=== PATIENT | female | born 1960 | race Caucasian/White ===

== ENCOUNTER 2023-11-26 11:27 | Emergency (ER) | payer OTHER, SELFPAY ==
--- NOTE | 2023-11-26 11:30 | ED.GENADULT ---
HPI - General Adult General Date Seen: 11/26/23 Chief complaint: Laceration/Wound Stated complaint: Ear/wrist lac Time Seen by Provider: 11/26/23 11:29 History of Present Illness HPI narrative: 62-year-old female presenting to the ER today with [facility] [employer] for evaluation of injuries that occurred during and on the work accident. 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 There was a wet spot on the floor of the bathroom she was cleaning so she slipped and fell. She is not exactly sure what happened when she slipped because it happened so fast but she struck her right ear gets the edge of the counter where the sinks were. She was not knocked out. She does not have a headache. No blurry vision. No dizziness. No nausea. No confusion. No amnesia. She struck her ear and some bleeding from that year. She also scraped the dorsum of the ulnar aspect of her left wrist when she fell. She is not exactly sure how that happened but probably from flailing her arms. She does not have any pain in the wrist. No numbness in her left hand. No difficulty with range of motion. She does not think her left wrist is broken. No other injuries from the fall. She is not sure of her last tetanus shot. Evaluation of [place] immunization database indicates that it was 11 years ago in 2012. She is not diabetic or immunosuppressed. She does have a history of depression and takes a low dose of antidepressant. Related Data Home Medications Medication Instructions Recorded Confirmed cetirizine 10 mg tablet 10 mg PO DAILY 11/26/23 11/26/23 fluticasone propionate 50 2 spray intranasal DAILY 11/26/23 11/26/23 mcg/actuation nasal spray,suspension gabapentin 100 mg capsule 100 mg PO QPM PRN pain 11/26/23 11/26/23 Allergies Allergy/AdvReac Type Severity Reaction Status Date / Time Penicillins Allergy Intermediate Hives Verified 11/26/23 11:32 Sulfa (Sulfonamide Allergy Intermediate Hives Verified 11/26/23 11:32 Antibiotics) PFSH PFSH Social History Smoking Status: Never smoker How often do you have a drink containing alcohol: never AUDIT-C Alcohol total score: 0 Non-prescribed substance use: denies use service: No Exam Narrative: Exam Narrative: Constitutional: Appears well-developed and well-nourished. Alert. Conversant. Non toxic. HENT: Head: Left ear normal. TM normal. Right ear: Patient has 2 lacerations on the anterior portion of her left ear. One of them is just anterior to the helix of the right earing the scapha, measuring about 8 or 9 mm running parallel to the helix. the 2nd laceration on the anterior surface is on the lower border of the helix running perpendicular to the axis of the helix just above where the lobe begins it is approximately 8 or 10 mm in length. There is also a linear 10-12 mm laceration on the posterior aspect of the ear running vertically on the posterior aspect of the ear. These do not appear to be through and through lacerations. There subtle ecchymosis on the anterior anti helix which is probably a very small area of hematoma, possibly a very early small, auricular hematoma.. Nose: Nose normal. Mouth/Throat: Oral mucosa is clear and moist. no trismus. Pharynx normal. Tonsils symmetric. No tonsillar enlargement, erythema, or exudate. Eyes: Conjunctivae normal. EOM normal. Pupils equal, round, and reactive to light. No scleral icterus. Neck: Normal range of motion. Neck supple. No tracheal deviation present. Cardiovascular: Normal rate, regular rhythm. No gallop. No friction rub. No murmur heard. Symmetric radial artery pulses Pulmonary/Chest: Effort normal. No stridor. No respiratory distress. No wheezes. No rales. No rhonchi . No tenderness. Abdominal: Soft. Bowel sounds normal. No distension. No mass. No tenderness. No rebound. No guarding. Musculoskeletal: RUE: Normal range of motion. No tenderness. No deformity LUE: Normal range of motion. No tenderness. No deformity RLE: Normal range of motion. No edema. No tenderness. No deformity LLE: Normal range of motion. No edema. No tenderness. No deformity Lymph: No cervical adenopathy. Neurological: Alert and oriented to person, place, and time. Normal strength. CN II-VII intact. No sensory deficit. GCS eye subscore is 4. GCS verbal subscore is 5. GCS motor subscore is 6. Normal coordination Skin: Skin is warm and dry. No rash noted. No pallor. Normal capillary refill. Psychiatric: Normal mood. Normal affect. Const: Vital Signs, click to edit/add: Vital Signs - 24 hr 11/26/23 11:33 Temperature 97.3 F L Pulse Rate [Pulse Oximeter] 67 Respiratory Rate 18 Blood Pressure [Ri ght Upper Arm] 191/101 H Pulse Oximetry 98 Oxygen Delivery Me thod Room Air Course Vital Signs Vital signs: Initial Vital Signs Temperature 97.3 F L 11/26/23 11:33 Temperature Source Temporal Artery Scan 11/26/23 11:33 Pulse Rate 67 11/26/23 11:33 Respiratory Rate 18 11/26/23 11:33 Blood Pressure 191/101 H 11/26/23 11:33 Blood Pressure Mean 131 H 11/26/23 11:33 Blood Pressure Position Sitting 11/26/23 11:33 Pulse Oximetry 98 11/26/23 11:33 Oxygen Delivery Method Room Air 11/26/23 11:33 Vital Signs Temperature 97.3 F L 11/26/23 11:33 Pulse Rate 67 11/26/23 11:33 Respiratory Rate 18 11/26/23 11:33 Blood Pressure 191/101 H 11/26/23 11:33 Pulse Oximetry 98 11/26/23 11:33 Oxygen Delivery Method Room Air 11/26/23 11:33 Temperature 97.3 F L 11/26/23 11:33 Pulse Rate 67 11/26/23 11:33 Respiratory Rate 18 11/26/23 11:33 Blood Pressure 191/101 H 11/26/23 11:33 Pulse Oximetry 98 11/26/23 11:33 Oxygen Delivery Method Room Air 11/26/23 11:33 Medical Decision Making MDM Narrative Medical decision making narrative: Very pleasant 62-year-old female who works at [employer]. She has a work related injury to her right ear that occurred when she was cleaning a bathroom and slipped on the wet floor. She struck her ear against the counter. She did not have a head injury, loss of consciousness. She has no headache or other symptoms of concussion or TBI. At this point I do not think she needs head CT. No neck injury or need for C-spine CT. Remainder of her head to toe trauma exam is negative is seen for a superficial abrasion on the ulnar aspect of her distal forearm just proximal to the wrist. Exam shows no evidence for underlying fracture. Tetanus is updated today. She is generally healthy, not immunosuppressed. Overall these wounds are low risk for infection and she does not require prophylactic oral antibiotics. Topical antibiotic ointment applied. She does have complex injuries to her right ear. There are 3 separate lacerations. These are associated with a small area of auricular hematoma. I closed 3 lacerations using 6 0 Ethilon sutures after expressing all the blood from the auricular hematoma. We applied sterile antibiotic ointment and sterile petroleum jelly into the scaphoid of the ear with careful attention to make sure we pack into the contours of the ear and then we applied a pressure dressing using gauze and Coban around the ear to keep pressure on the ear and prevent the auricular hematoma from reforming. Discussed wound care with the patient. Discussed with ENT surgeon. He will have her follow-up in clinic in [place] next Wednesday at 10:00 a.m. for evaluation and suture removal. Discharge Plan Discharge Clinical Impression: Hematoma of right auricular region, Laceration of ear Patient Disposition: Home, Self-Care Condition: Stable Instructions: Laceration (DC) Additional Instructions: You have an appointment to follow-up with ENT on WednesdayNovember 30 at 10:00 a.m. in the [facility] ENT office. If you need to reschedule your appointment, call [phone]. To care for your wounds, keep the pressure dressing in place today and tonight. Remove the dressing tomorrow. Evaluate for any signs for recurrence of the hematoma. If you have any concerned that the hematoma is reaccumulating, return to the ER right away to be rechecked. If the ear looks good, you can reapply antibiotic ointment and reapply the pressure dressing for 1 more day. After that, gently clean the wounds once per day with clean water. After the wounds are clean reapply antibiotic ointment and dressings. Avoid submerging your urine water or scrubbing it vigorously with soap. If you have any signs of infection such as redness, swelling, or pus draining from the cuts, come back to the ER right away. Recheck with the ENT doctor by next Wednesday. Prescriptions: No Action cetirizine 10 mg tablet 10 mg PO DAILY gabapentin 100 mg capsule 100 mg PO QPM PRN (Reason: pain) fluticasone propionate 50 mcg/actuation spray,suspension 2 spray INTRANASAL DAILY Follow Up/Referrals: Provider,Not a Local [Primary Care Provider] - Stand Alone Forms: MyHealth Info Instructions Procedures Laceration Right ear: Pre procedure diagnosis: Right ear laceration Size (cm): 2.5 Description: irregular (3 separate lacerations. First is 1cm vertical linear on scapha of anterior ear. Closed with 2 simple interrupted 6-0 Ethilon sutures. 2nd W- shaped 8-10mm laceration running perpendicular to the scapha. closed with #2 6-0 ethilon. 3rd laceration is linear 1cm on posterior. closed with #3 6-0 ethil) Depth: simple, single layer Local Anesthetic: bupivacaine 0.25% Amount of anesthesia used (mL): 2 Pre-repair: wound explored (Small a regular hematoma was entered and blood was expressed until ear contours were flat and normal.) Technique: simple, interrupted
[2023-11-26 11:33] VITALS: BP 191/101; PULSE 67; RESP 18; TEMP 36.3; O2SAT 98; BMI 23.6
== END 2023-11-26 14:04 | disposition home or self-care (01) ==
PROVIDERS: Emergency Provider Emergency Medicine
DX: S01.311A Laceration without foreign body of right ear, initial encounter (principal); W01.10XA Fall on same level from slipping, tripping and stumbling with subsequent striking against unspecified object, initial encounter; Y93.E5 Activity, floor mopping and cleaning; Y92.214 College as the place of occurrence of the external cause; Y99.0 Civilian activity done for income or pay
CPT/HCPCS: 12011; 99282; 99283

== ENCOUNTER 2024-02-23 13:45 | Outpatient (RCR) | payer OTHER, SELFPAY | END 2024-05-08 13:48 | disposition home or self-care (01) | PROVIDERS: PCP Nurse Practitioner Family; Visit Provider Surgery | DX: S06.0X0A Concussion without loss of consciousness, initial encounter (principal); Z51.89 Encounter for other specified aftercare | CPT/HCPCS: 97110; 97140; 97162 ==

== ENCOUNTER 2025-03-05 13:45 | Outpatient (CLI) | payer BC, SELFPAY ==
--- NOTE | 2025-03-05 14:00 | CRLHL7_ITS ---
For Patients: As a result of the Century Cures Act, medical imaging exams and procedure reports are released immediately into your electronic medical record. You may view this report before your referring provider. If you have questions, please contact your health care provider. INDICATION: Chronic sinusitis TECHNIQUE: CT sinus without contrast. COMPARISON: None. 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 Mild mucosal thickening in the right anterior ethmoid air cells. Mild mucosal thickening with aerated secretions in the left sphenoid sinus. There is arrested pneumatization of the sphenoid sinuses. Trace mucosal thickening in the bilateral maxillary sinus alveolar recesses. The paranasal sinuses are otherwise clear. Small bilateral mastoid effusions versus arrested pneumatization of the inferior mastoid air cells. The superior aspect of the right ostiomeatal unit is opacified. The left ostiomeatal unit is patent. There are bilateral secondary maxillary ostia. No Kevon or Onodi cells. The fovea ethmoidalis and orbital marshall are intact. The nasal septum is midline and intact. The nasal turbinates are normal. Orbits and globes: Unremarkable. Visualized intracranial contents: Unremarkable. Soft tissues: Unremarkable. IMPRESSION: Mild scattered mucosal thickening in the right anterior ethmoid air cells, left sphenoid sinus, and bilateral maxillary sinuses. The paranasal sinuses are otherwise clear. Please note that all CT scans at this facility use dose modulation, iterative reconstruction, and/or weight-based dosing when appropriate to reduce radiation dose to as low as reasonably achievable. Dictated by Tunde Haines MD @ 03/05/2025 6:08:35 PM (Electronically Signed)
== END 2025-03-05 13:46 | disposition home or self-care (01) ==
LOC: CT 13:45
PROVIDERS: PCP Nurse Practitioner Family; Visit Provider Otolaryngology
DX: J32.9 Chronic sinusitis, unspecified (principal); J32.0 Chronic maxillary sinusitis; J32.3 Chronic sphenoidal sinusitis
CPT/HCPCS: 70486